=== PATIENT | male | born 2000 | race Caucasian/White ===

== ENCOUNTER 2024-05-07 21:45 | Emergency (ER) | payer SELFPAY ==
[2024-05-07] MEDS: cefTRIAXone 1 GM, Lidocaine 1% 2.1 ML IM SCH (22:53)
[2024-05-07] MEDS: cefTRIAXone 1 GM Vial IM ONE (23:04)
[2024-05-07] MEDS: Lidocaine 1% 10 ML MDV ONE (23:04)
== END 2024-05-07 23:08 | disposition home or self-care (01) ==
LOC: JD.ED 21:45
DX: L98.9 Disorder of the skin and subcutaneous tissue, unspecified (principal)
CPT/HCPCS: 96372; 99282; J0696; J2003

== ENCOUNTER 2024-06-14 18:57 | Emergency (ER) | payer SELFPAY | END 2024-06-14 19:45 | disposition home or self-care (01) | LOC: JD.ED 18:57 | DX: S90.32XA Contusion of left foot, initial encounter (principal); F17.210 Nicotine dependence, cigarettes, uncomplicated; X58.XXXA Exposure to other specified factors, initial encounter | CPT/HCPCS: 73630-26-LT; 73630-LT; 99283 ==